=== PATIENT | male | born 1955 | race Caucasian/White ===

== ENCOUNTER → 2017-06-30 | Outpatient (CLI) | payer OTHER ==
[~2017-06-30] MED LIST: CONTRAST GIVEN MC
[2017-06-30] MEDS: IOHEXOL 300 MG/ML 100ML VIAL. IV (10:40)
== END | disposition home or self-care (01) ==
LOC: CT 09:46
DX: R31.9 Hematuria, unspecified (principal)
CPT/HCPCS: 74178; Q9967